=== PATIENT | female | born 1950 | race Caucasian/White ===

== ENCOUNTER 2017-11-12 14:57 | Outpatient (CLI) | payer MEDICARE, MEDICAID ==
[2017-11-12 16:20] LABS: Hemoglobin 13.7 g/dL (12.0-16.0); Mean Corpuscular HGB CONC 34.6 g/dL (32.0-36.0); Mean Corpuscular Hemoglobin 32.1 pg (27.0-31.0); Mean Corpuscular Volume 92.8 fL (78.0-98.0); Mean Platelet Volume 7.1 fL (7.4-10.4); Platelet Count 303 thou/uL (130-400); RBC Distribution Width 12.7 % (11.5-14.5); Red Blood Cell (RBC) Count 4.28 mill/uL (4.20-5.40); White Blood Cell (WBC) Count 8.1 thou/uL (4.8-10.8)
[2017-11-12 16:39] LABS: Anion Gap 14 mmol/L (10-20); BUN (Urea Nitrogen) 10 mg/dL (9.8-20.1); Calc. Creatinine Clearance 0 mL/min (70-130); Calcium 9.7 mg/dL (7.8-10.44); Carbon Dioxide 25 mmol/L (23-31); Chloride 104 mmol/L (98-107); Estimated GFR-MDRD 71; Glucose 98 mg/dL (80-115); Sodium 139 mmol/L (136-145)
== END 2017-11-12 14:58 | disposition home or self-care (01) ==
LOC: LABBT 14:57
PROVIDERS: ATTEND Obstetrics & Gynecology
DX: Z01.812 Encounter for preprocedural laboratory examination (principal); N81.6 Rectocele
CPT/HCPCS: 80048; 85027; 86850; 86900; 86901

== ENCOUNTER 2017-11-18 07:30 | Day surgery (SDC) | payer MEDICARE, MEDICAID ==
--- NOTE | 2017-11-13 23:12 | HP ---
HISTORY OF PRESENT ILLNESS: Ms. Joya is a 67-year-old white female, prior hysterectomy who was ref erred by Dr. Blaire eSrna, Neurology for rectocele. She is having issues with stool getting luis antonio ck in her vaginal vault and rectum with bowel movements due the rectocele hernia defect. She has to splint to help remove her feces. She is using MiraLax and stool softener. As noted, she has had a p rior hysterectomy with bladder lift. PAST MEDICAL HISTORY: COPD, asthma. She has history of anxiety, depression. OB HISTORY: G9, . PAST SURGICAL HISTORY: Hysterectomy and cholecystectomy. SOCIAL HISTORY: She is a smoker. No alcohol consumption. She is single, retired, not sexually acti ve. ALLERGIES: HYDROCODONE and PENICILLINS. FAMILY HISTORY: Noncontributory. PHYSICAL EXAMINATION: VITAL SIGNS: Blood pressure is 120/74, pulse rate 96, respirations 18. Height 64 inches, weight 173 pounds, BMI 29.7. HEENT: Within normal limits. CHEST: Clear to auscultation. HEART: Regular rate and rhythm. S1, S2 heart sounds, no murmurs, rubs or gallops. ABDOMEN: Soft, nontender and nondistended with no palpable masses. PELVIC: Vulva and vagina had no lesions. Cervix was surgically absent. Uterus was surgically absen t. Vagina showed a rectocele grade 3. No vaginal discharge was noted. It was nontender. No signif icant cystocele was observed. ASSESSMENT AND PLAN: This is a 67-year-old white female with prior hysterectomy with grade 3 symptom atic rectocele. Plan for posterior repair. Risks and benefits of surgery discussed in detail, set f or surgery on 11/18/2017.
[2017-11-18] MEDS ORDERED: Levofloxacin 500 mg/D5W 100 ml Premix Bag ONE (08:12)
[2017-11-18] MEDS ORDERED: Clindamycin/D5W 900 mg/50 ml Premix Bag ONE (08:13)
[2017-11-18] MEDS ORDERED: Fentanyl 100 MCG/2 ML VIAL ONE (09:16)
[2017-11-18] MEDS ORDERED: Midazolam HCl 2 mg/2 ml Vial ONE ×2 (09:16→10:30)
[2017-11-18] MEDS ORDERED: Lidocaine 1% w/Epinephrine 1:100K 30 ML VIAL ONE (09:40)
[2017-11-18] MEDS ORDERED: Fentanyl 250 MCG/5 ML VIAL ONE (10:30)
[2017-11-18] MEDS ORDERED: Albumin 5% 0 ML ONE (10:30)
[2017-11-18] MEDS ORDERED: Lidocaine 1% PF 5 ML VIAL ONE (12:44)
[2017-11-18] MEDS ORDERED: PROPOFOL 200 MG/20 ML VIAL ONE (12:44)
[2017-11-18] MEDS ORDERED: Ketorolac Tromethamine 30 MG/ML VIAL ONE (12:44)
[2017-11-18] MEDS ORDERED: Ondansetron HCl/PF 4 MG/2 ML Vial ONE (12:44)
[2017-11-18] MEDS ORDERED: Promethazine HCl 25 MG/ML VIAL ONE (12:55)
[2017-11-18] MEDS ORDERED: Promethazine HCl 25 MG/ML VIAL IM PRN (13:02)
[2017-11-18] MEDS ORDERED: Ondansetron HCl/PF 4 MG/2 ML Vial IVP PRN (13:02)
[2017-11-18] MEDS ORDERED: Promethazine HCl 25 MG/ML VIAL SLOW IVP PRN (13:02)
--- NOTE | 2017-11-18 13:49 | OP ---
DATE OF PROCEDURE: 11/18/2017 PREOPERATIVE DIAGNOSES: A 67-year-old white female with previous hysterectomy with grade 3 rectocele , symptomatic. POSTOPERATIVE DIAGNOSES: A 67-year-old white female with previous hysterectomy with grade 3 rectocel e, symptomatic. PROCEDURE PERFORMED: Posterior colporrhaphy. SURGEON: Zoë López M.D. BANDING MACHINE OPERATOR: Vandana Garay M.D. ANESTHESIA: General with LMA. ESTIMATED BLOOD LOSS: Less than 25 mL. COMPLICATIONS: None. COUNTS: Correct x2. ANTIBIOTICS: Two grams Ancef compliance and control analyst to the OR. FINDINGS: 1. A grade 3 rectocele with no apparent enterocele noted. Good reduction of posterior vaginal herni a post-repair. 2. No evidence of any inadvertent sutures placement through the rectal mucosa on rectal exam post pr ocedure. DISPOSITION: To the recovery room stable. DESCRIPTION OF OPERATIVE PROCEDURE: The patient previously received informed consent in regards to junito tiwari. She was taken back to the operating room where she received a general anesthetic agent. She was placed in dorsal lithotomy position with use of candy cane stirrups, prepped and draped in usual sterile fashion. Looney catheter was placed. At this time, an exam under anesthesia was performed w ith the previously mentioned findings. The 4 o'clock and 8 o'clock position of the vaginal introitus mucosa was grasped with 2 Allis clamps. The posterior vaginal mucosa was infiltrated with 1% lidoca ine with epinephrine. A midline vertical incision was made with scalpel and initiated in the perinea l introitus region in the midline and this was extended up to the vaginal cuff site with Metzenbaum s cissors. The edges of the posterior vaginal mucosa were grasped with Allis clamps for countertractio n and exposure. The rectocele was then dissected sharply and bluntly and then pelvic fascial defect was reduced freeing up some of the endopelvic fascia for later closure use. The endopelvic fascia ed ge was grasped in upper vaginal vault near this cuff line. This was grasped with Allis clamps corrina galaviz. Iubhya-gk-[id number] sutures of 2-0 Vicryl suture was then placed, reapproximating the endopelvic fascia starting most caudally and then working our way out towards the vaginal introitus. The plicat ion endopelvic fascia and midline, reducing the rectocele defect in its entirety. Then 2-0 interveni ng [id number] sutures were utilized to close the posterior vaginal mucosa incorporating some of the endopelvic fascia for vaginal mucosal closure and hemostasis. Once this was secured, a new glove was placed and a rectal exam was performed. There was no evidence of any inadvertent suture placeme nt through the rectal mucosa. Moistened Kerlix gauze was then placed to pack the vaginal vault and a Looney catheter was draining clear urine. The patient was awakened from anesthesia, transferred to [facility] in stable condition. Plan to observe patient overnight and discharged home in the [facility]
[2017-11-18] MEDS ORDERED: PROVENTIL INHALER 6.7 G (200 INHALATIONS) INH PRN (14:54)
[2017-11-18] MEDS ORDERED: Ondansetron HCl/PF 4 MG/2 ML Vial SLOW IVP PRN (15:41)
[2017-11-18] MEDS ORDERED: traMADol HCl 50 MG TAB PO PRN (15:41)
[2017-11-18] MEDS ORDERED: Ibuprofen 600 MG TAB PO PRN (15:42)
[2017-11-18] MEDS ORDERED: Nicotine 21 MG PATCH TOP SCH (16:00)
[2017-11-18] MEDS ORDERED: Prevnar 13-Val Conj/PF 0.5 ML SYRINGE IM ONE (16:15)
[2017-11-18] MEDS: Mometasone/Formoterol 120 PUFF INHALER INH SCH (19:26)
[2017-11-19] MEDS: Mometasone/Formoterol 120 PUFF INHALER INH SCH (06:46)
[2017-11-19 08:09] VITALS: BP 127/72; TEMP 97.9
--- NOTE | 2017-11-19 08:20 | DIS ---
DIAGNOSIS: Symptomatic grade 3 rectocele. SUMMARY OF HOSPITAL COURSE: Ms. Joya is a 67-year-old white female with prior hysterectomy, has miles d symptomatic rectocele symptoms including splinting requirement for initiating bowel movement. She underwent surgical repair of the rectocele with posterior repair on 11/18/2017. Postoperatively, the patient has done well. Her vital signs remained stable. Her Looney catheter is intact. Vaginal pac lynda was removed postop day #1 and she has voided without difficulty. Her pain control is well manag ed with nonsteroidals and minimal narcotic use. Her COPD has been stable in the hospital with her ma intenance medications and her tobacco use has been maintained and modified by use of a nicotine patch . She was discharged postop day #1 with follow up in 2 and 6 weeks. DISCHARGE MEDICATIONS: Will be deph-dge-aumtabq ibuprofen as directed and Ultram 50 mg q.6h. p.r.n. severe pain. Also, bowel regimen importance was discussed with her including continuing MiraLax and stool softener daily to avoid constipation.
[2017-11-19] MEDS ORDERED: Dicyclomine 10 MG CAP PO SCH (09:00)
== END 2017-11-19 09:25 | disposition home or self-care (01) ==
LOC: SDC 07:30 → 3SW 14:13 → SDC 11-19 09:25
PROVIDERS: ATTEND Obstetrics & Gynecology
PROC: 0JQC0ZZ Repair Pelvic Region Subcutaneous Tissue and Fascia, Open Approach (ICD-10-PCS; principal; 2017-11-18)
DX: N81.6 Rectocele (principal); J44.9 Chronic obstructive pulmonary disease, unspecified; F41.9 Anxiety disorder, unspecified; F32.9 Major depressive disorder, single episode, unspecified; F17.200 Nicotine dependence, unspecified, uncomplicated; Z88.0 Allergy status to penicillin; Z88.5 Allergy status to narcotic agent; Z90.710 Acquired absence of both cervix and uterus; Z79.899 Other long term (current) drug therapy
CPT/HCPCS: 96374; J1885; J1956; J2001; J2250; J2405; J2550; J2704; J3010; J3490; P9045

== ENCOUNTER 2018-03-09 13:57 | Outpatient (CLI) | payer MEDICARE, MEDICAID | END 2018-03-09 13:58 | disposition home or self-care (01) | LOC: BICMAMMO 13:57 | PROVIDERS: ATTEND Family Medicine | DX: Z12.31 Encounter for screening mammogram for malignant neoplasm of breast (principal); R92.1 Mammographic calcification found on diagnostic imaging of breast; Z80.3 Family history of malignant neoplasm of breast | CPT/HCPCS: 77063; 77067 ==

== ENCOUNTER 2021-12-11 13:58 | Outpatient (CLI) | payer OTHER, MEDICAID | END 2021-12-11 13:59 | disposition home or self-care (01) | LOC: BICMAMMO 13:58 | PROVIDERS: ATTEND Family Medicine | DX: Z12.31 Encounter for screening mammogram for malignant neoplasm of breast (principal); E89.40 Asymptomatic postprocedural ovarian failure; M85.80 Other specified disorders of bone density and structure, unspecified site; Z98.82 Breast implant status; Z85.42 Personal history of malignant neoplasm of other parts of uterus | CPT/HCPCS: 77063; 77067; 77080 ==

== ENCOUNTER 2021-12-31 13:00 | Outpatient (CLI) | payer OTHER, MEDICAID | END 2021-12-31 13:01 | disposition home or self-care (01) | LOC: BICCT 13:00 | PROVIDERS: ATTEND Family Medicine | DX: Z12.2 Encounter for screening for malignant neoplasm of respiratory organs (principal); F17.220 Nicotine dependence, chewing tobacco, uncomplicated | CPT/HCPCS: 71271 ==

== ENCOUNTER 2022-01-08 09:02 | Outpatient (CLI) | payer OTHER, MEDICAID | END 2022-01-08 09:03 | disposition home or self-care (01) | LOC: BICULT 09:02 | PROVIDERS: ATTEND Family Medicine | DX: F17.220 Nicotine dependence, chewing tobacco, uncomplicated (principal); I70.90 Unspecified atherosclerosis | CPT/HCPCS: 76775 ==

== ENCOUNTER 2024-03-11 12:58 | Outpatient (CLI) | payer OTHER, MEDICAID | END 2024-03-11 12:59 | disposition home or self-care (01) | LOC: CT 12:58 | PROVIDERS: ATTEND Internal Medicine Cardiovascular Disease | DX: I65.21 Occlusion and stenosis of right carotid artery (principal) | CPT/HCPCS: 36415; 70498; 82565 ==

== ENCOUNTER 2024-04-07 13:22 | Outpatient (CLI) | payer OTHER, MEDICAID ==
[2024-04-07 14:49] LABS: #Basophils 0.03 10x3/uL (0.0-0.2); %Basophils 0.4 % (0.0-1.0); %Eosinophils 4.1 % (0.0-10.0); %Lymphocytes 30.8 % (21.0-51.0); %Neutrophils 56.4 % (42.0-75.0); Hematocrit 38.5 % (36.0-47.0); Hemoglobin 12.5 g/dL (12.0-16.0); Mean Corpuscular HGB CONC 32.5 g/dL (32.0-36.0); Mean Corpuscular Hemoglobin 30.1 pg (27.0-31.0); Mean Corpuscular Volume 92.8 fL (78.0-98.0); Mean Platelet Volume 10.3 fL (7.4-10.4); Platelet Count 290 10x3/uL (130-400); RBC Distribution Width 14.6 % (11.5-14.5); Red Blood Cell (RBC) Count 4.15 mill/uL (4.20-5.40)
[2024-04-07 15:06] LABS: Anion Gap 13 mmol/L (10-20); BUN (Urea Nitrogen) 9 mg/dL (9.8-20.1); Calc. Creatinine Clearance 0 mL/min (70-130); Calcium 9.4 mg/dL (7.8-10.44); Carbon Dioxide 24 mmol/L (23-31); Chloride 108 mmol/L (98-107); Estimated GFR 78; Glucose 103 mg/dL (83-110); Potassium 4.3 mmol/L (3.5-5.1); Sodium 141 mmol/L (136-145)
== END 2024-04-07 13:23 | disposition home or self-care (01) ==
LOC: LABBT 13:22
PROVIDERS: ATTEND Thoracic Surgery (Cardiothoracic Vascular Surgery)
DX: Z01.818 Encounter for other preprocedural examination (principal); I65.21 Occlusion and stenosis of right carotid artery
CPT/HCPCS: 80048; 85025; 93005; 93010

== ENCOUNTER 2024-04-07 14:30 | Inpatient (IN) | payer OTHER, MEDICAID ==
[2024-04-07 13:44] VITALS: BMI 29.0
[2024-04-09] MEDS ORDERED: EPINEPHrine 1 MG/ML VIAL ONE (09:00)
[2024-04-09] MEDS ORDERED: Heparin 5,000 UNITS/ML VIAL ONE (09:00)
[2024-04-09] MEDS ORDERED: Bupivacaine PF 0.5% 30 ML VIAL ONE (09:00)
[2024-04-09] MEDS ORDERED: Phenylephrine 10 MG/ML VIAL ONE (09:07)
[2024-04-09] MEDS ORDERED: PROPOFOL 20 ML ONE ×2 (09:11→10:30)
[2024-04-09] MEDS ORDERED: Clindamycin/D5W 900 mg/50 ml Premix Bag ONE (09:11)
[2024-04-09] MEDS ORDERED: Rocuronium Bromide 10 MG/ML (10ML VIAL) ONE (09:12)
[2024-04-09] MEDS ORDERED: Lidocaine 1% PF 5 ML VIAL ONE (09:12)
[2024-04-09] MEDS ORDERED: fentaNYL 50 mcg/mL 1 mL Vial ONE ×5 (09:12→14:45)
[2024-04-09] MEDS ORDERED: Glycopyrrolate 0.2 MG/ML 5 ML SYRINGE ONE ×2 (09:20→10:06)
[2024-04-09] MEDS ORDERED: PHENYLEPHRINE-NS 100 MCG/ML 10 ML SYRINGE ONE (09:20)
[2024-04-09] MEDS ORDERED: Lidocaine-Prilocaine 2.5% Cream 5 GM TUBE ONE (09:44)
[2024-04-09] MEDS ORDERED: Ondansetron PF 4 MG/2 ML Vial ONE (10:23)
[2024-04-09] MEDS ORDERED: Protamine Sulfate 50 MG/5 ML VIAL ONE (10:24)
[2024-04-09] MEDS ORDERED: SUGAMMADEX SODIUM 200 MG/2 ML VIAL ONE ×2 (10:25→10:27)
[2024-04-09] MEDS ORDERED: Ondansetron PF 4 MG/2 ML Vial IVP PRN (11:23)
[2024-04-09] MEDS ORDERED: Ipratropium/Albuterol 3 ML NEB NEB PRN ×2 (11:23)
[2024-04-09] MEDS ORDERED: Nitroglycerin 50 MG/250 ML BOT 250 ML IVPB PRN (11:23)
[2024-04-09] MEDS ORDERED: Phenylephrine 40 MG/NS 250 ML 250 ML IVPB PRN (11:23)
[2024-04-09] MEDS ORDERED: Albuterol 200 PUFF (6.7GM INHALER) INH PRN (11:23)
[2024-04-09] MEDS ORDERED: hydrALAZINE 20 MG/ML VIAL SLOW IVP PRN (11:23)
[2024-04-09] MEDS ORDERED: Acetaminophen 325 MG TAB ONE (11:29)
[2024-04-09] MEDS: Ipratropium/Albuterol 3 ML NEB NEB SCH (17:28)
[2024-04-09] MEDS: CEFAZOLIN 2 GM in Sodium Chloride 0.9% 100 ML IVPB SCH (17:41)
[2024-04-09] MEDS: traMADol HCl 50 MG TAB PO PRN (17:42)
[2024-04-09] MEDS: Acetaminophen 325 MG TAB PO PRN (17:42)
[2024-04-09] MEDS: Sodium Chloride 0.9% 1,000 ML IV SCH (17:43)
[2024-04-09] MEDS: rOPINIRole HCl 0.5 MG TAB PO SCH (17:43)
[2024-04-09] MEDS: fentaNYL 50 mcg/mL 1 mL Vial SLOW IVP PRN (18:20)
[2024-04-09] MEDS: Mometasone 200 MCG/Formoterol 5 MCG 120 PUFF INHALER INH SCH (19:49)
[2024-04-09] MEDS: traZODone HCl 50 MG TAB PO SCH (20:05)
[2024-04-09] MEDS: Gabapentin 300 MG CAP PO SCH (20:06)
[2024-04-09] MEDS: Pantoprazole DR 40 MG TAB PO SCH (20:07)
[2024-04-10 05:12] VITALS: TEMP 98.5
[2024-04-10] MEDS ORDERED: Linaclotide [Linzess] 145 MCG Capsule PO SCH (07:30)
[2024-04-10] MEDS ORDERED: Clopidogrel Bisulfate 75 MG TAB PO SCH (09:00)
[2024-04-10] MEDS ORDERED: Sertraline 100 MG TAB PO SCH (09:00)
[2024-04-10] MEDS ORDERED: Aspirin 81 mg Enteric Coated Tablet PO SCH (09:00)
[2024-04-10] MEDS ORDERED: Rosuvastatin 5 MG TAB PO SCH (21:00)
== END 2024-04-10 09:25 | disposition home or self-care (01) | DRG 36 ==
LOC: SURG A 04-09 06:53 → CCU 04-09 17:07
PROVIDERS: ADMIT Thoracic Surgery (Cardiothoracic Vascular Surgery); ATTEND Thoracic Surgery (Cardiothoracic Vascular Surgery)
PROC: 037K3DZ Dilation of Right Internal Carotid Artery with Intraluminal Device, Percutaneous Approach (ICD-10-PCS; principal; 2024-04-09)
DX: I65.21 Occlusion and stenosis of right carotid artery (principal); J44.9 Chronic obstructive pulmonary disease, unspecified; M79.7 Fibromyalgia; K21.9 Gastro-esophageal reflux disease without esophagitis; G40.909 Epilepsy, unspecified, not intractable, without status epilepticus; G25.81 Restless legs syndrome; G47.00 Insomnia, unspecified; E78.5 Hyperlipidemia, unspecified; F41.8 Other specified anxiety disorders; I25.10 Atherosclerotic heart disease of native coronary artery without angina pectoris; F17.210 Nicotine dependence, cigarettes, uncomplicated; Z88.0 Allergy status to penicillin; Z88.5 Allergy status to narcotic agent; Z90.49 Acquired absence of other specified parts of digestive tract; Z90.710 Acquired absence of both cervix and uterus
CPT/HCPCS: C1769; C1876; C1884; J0171; J0665; J1642; J1644; J2371; J2405; J2704; J2720; J3010; J3490; J7620

== ENCOUNTER 2024-12-14 11:47 | Outpatient (CLI) | payer MEDICARE, MEDICAID ==
[~2024-12-14 11:47] MED LIST: Iopamidol 370 76% 100 ML VIAL ONE
[2024-12-14 12:46] LABS: Estimated GFR - POC 66.0
== END 2024-12-14 11:48 | disposition home or self-care (01) ==
LOC: CT 11:47
PROVIDERS: ATTEND Internal Medicine Critical Care Medicine
DX: R91.8 Other nonspecific abnormal finding of lung field (principal)
CPT/HCPCS: 36415; 71260; 82565; Q9967

== ENCOUNTER 2025-04-08 20:32 | Emergency (ER) | payer MEDICARE, MEDICAID ==
[~2025-04-08 20:32] MED LIST changes: -Iopamidol 370 76% 100 ML VIAL ONE; +Iopamidol-370 76% 500 ML MDV (1 ML CHARGE) ONE
[2025-04-08 20:55] LABS: #Basophils Less than 0.03 10x3/uL (0.0-0.2); #Eosinophils 0.80 10x3/uL (0.0-0.7); #Monocytes 0.62 10x3/uL (0.11-0.59); #Neutrophils 4.70 10x3/uL (1.40-6.50); %Basophils 0.3 % (0.0-1.0); %Eosinophils 10.4 % (0.0-10.0); %Lymphocytes 19.6 % (21.0-51.0); %Monocytes 8.1 % (0.0-10.0); %Neutrophils 61.2 % (42.0-75.0); Hematocrit 40.5 % (36.0-47.0); Hemoglobin 13.2 g/dL (12.0-16.0); Mean Corpuscular Hemoglobin 29.7 pg (27.0-31.0); Mean Corpuscular Volume 91.0 fL (78.0-98.0); Platelet Count 279 10x3/uL (130-400); Red Blood Cell (RBC) Count 4.45 mill/uL (4.20-5.40); White Blood Cell (WBC) Count 7.67 10x3/uL (4.8-10.8)
[2025-04-08 21:12] LABS: ALT (SGPT) 23 U/L (Less than 34); AST (SGOT) 36 U/L (11-34); Albumin 3.9 g/dL (3.1-4.5); Alkaline Phosphatase 57 U/L (40-110); Anion Gap 12 mmol/L (10-20); BUN (Urea Nitrogen) 20 mg/dL (9.8-20.1); Bilirubin, Total 0.4 mg/dL (0.3-1.2); Calc. Creatinine Clearance 0 mL/min (70-130); Calcium 8.6 mg/dL (7.8-10.44); Carbon Dioxide 20 mmol/L (23-31); Chloride 107 mmol/L (98-107); Globulin 3.0 g/dL (2.4-3.5); Glucose 147 mg/dL (83-110); Lipase 36 U/L (8-78); Magnesium 1.9 mg/dL (1.6-2.6); Potassium 3.6 mmol/L (3.5-5.1); Sodium 135 mmol/L (136-145)
== END 2025-04-09 00:21 | disposition home or self-care (01) ==
LOC: ERS 20:32
DX: R55 Syncope and collapse (principal); E86.0 Dehydration; R11.2 Nausea with vomiting, unspecified; R19.7 Diarrhea, unspecified; J44.89 Other specified chronic obstructive pulmonary disease; K21.9 Gastro-esophageal reflux disease without esophagitis; F17.210 Nicotine dependence, cigarettes, uncomplicated
CPT/HCPCS: 36416; 74177; 80053; 83690; 83735; 84484; 85025; 87428; 93005; 94760; 96361; 96374; Q9967